=== PATIENT | female | born 1985 ===

== ENCOUNTER 2022-08-23 20:00 | Outpatient (CLI) | payer MEDICAID, SELFPAY | END 2022-08-23 20:01 | disposition home or self-care (01) | LOC: SLEEP 08-24 07:03 | PROVIDERS: Visit Provider Registered Nurse | DX: G47.19 Other hypersomnia (principal); E66.9 Obesity, unspecified; G47.33 Obstructive sleep apnea (adult) (pediatric) | CPT/HCPCS: 95810 ==